=== PATIENT | male | born 1965 | race Caucasian/White ===

== ENCOUNTER 2018-02-01 18:10 | Emergency (ER) | payer BC ==
[~2018-02-01] VITALS: Ht 167.6 cm; Wt 81.4 kg
[2018-02-01] MEDS ORDERED: NORCO 7.5/321 TABLET PO (19:26)
[2018-02-01] MEDS ORDERED: MOTRIN800 MG PO (19:26)
[2018-02-01 20:06] VITALS: BP 130/80
== END 2018-02-01 20:06 | disposition home or self-care (01) ==
LOC: EME 18:10
DX: S05.01XA Injury of conjunctiva and corneal abrasion without foreign body, right eye, initial encounter (principal); H11.31 Conjunctival hemorrhage, right eye; W22.8XXA Striking against or struck by other objects, initial encounter; Y93.H9 Activity, other involving exterior property and land maintenance, building and construction; Z88.2 Allergy status to sulfonamides
CPT/HCPCS: 99281; 99284